=== PATIENT | male | born 1930 | race Caucasian/White ===

== ENCOUNTER → 2016-02-27 | Outpatient (CLI) | payer BC ==
[~2016-02-27] MED LIST: ACET-1256 PO; AMOX1TAB43 PO; BRIM0.15 OP; FLM4 PO; IPRA1AER2 INH; METO100T44 PO; OMEP20CA59 PO; PRS5 PO; SIMV40TA2 PO; SOLI5TAB2 PO; VTMD PO; WARF5TAB90 PO
[2016-02-27 11:11] LABS: BASO % 0.5 %; BASO ABS # 0.04 K/uL (0-0.2); COMPLETE YES; EOS % 2.7 %; HEMATOCRIT 46.9 % (42-52); IG% 0.3 %; LYMPH % 23.7 %; LYMPH ABS # 1.78 K/uL (1.2-3.4); MEAN CELL VOLUME 93.6 fL (80-100); MEAN CORPUSCULAR HEMOGLOBIN 32.7 pg (25-34); MEAN PLATELET VOLUME 11.6 fL (7.4-10.4); NEUT % 64.8 %; PLATELET COUNT 143 K/uL (130-400); RED BLOOD COUNT 5.01 M/uL (4.7-6.1)
[2016-02-27 11:27] LABS: ALT/SGPT 23 U/L (12-78); AST/SGOT 15 U/L (15-37); BLOOD UREA NITROGEN 17 mg/dl (7-18); BUN/CREATININE RATIO 19.1 (10-20); CALCIUM 8.5 mg/dl (8.5-10.1); CARBON DIOXIDE 24 mmol/L (21-32); CHLORIDE 109 mmol/L (98-107); GLUCOSE 104 mg/dl (70-99); POTASSIUM 3.7 mmol/L (3.5-5.1); SODIUM 142 mmol/L (136-145)
[2016-02-27 11:34] LABS: ALB/GLOB RATIO 1.2 (0.9-2); ALKALINE PHOSPHATASE 65 U/L (45-117); CHOLESTEROL 164 mg/dl (0-200); HDL CHOLESTEROL 55 mg/dl; LDL CHOLESTEROL CALCULATED 84 mg/dl; TRIGLYCERIDES 126 mg/dl (0-150); VERY LOW DENSITY LIPOPROT CALC 25 mg/dl
== END | disposition home or self-care (01) ==
LOC: C.LABBC 08:25
PROVIDERS: ATTEND Internal Medicine
DX: E55.9 Vitamin D deficiency, unspecified (principal); I10 Essential (primary) hypertension; E78.5 Hyperlipidemia, unspecified

== ENCOUNTER → 2016-10-24 | Outpatient (CLI) | payer BC ==
[~2016-10-24] MED LIST changes: -METO100T44 PO; +METO1TAB69 PO
[2016-10-24 11:00] LABS: HEMATOCRIT 46.1 % (42-52); MEAN CELL VOLUME 94.1 fL (80-100); MEAN CORPUSCULAR HGB CONC 34.1 g/dl (32-36); MEAN PLATELET VOLUME 11.3 fL (7.4-10.4); PLATELET COUNT 142 K/uL (130-400); WHITE BLOOD COUNT 6.04 K/uL (4.8-10.8)
[2016-10-24 11:28] LABS: ALT/SGPT 28 U/L (12-78); AST/SGOT 19 U/L (15-37); BLOOD UREA NITROGEN 11 mg/dl (7-18); BUN/CREATININE RATIO 14.5 (10-20); CALCIUM 8.4 mg/dl (8.5-10.1); CARBON DIOXIDE 28 mmol/L (21-32); CHLORIDE 109 mmol/L (98-107); CREATININE 0.78 mg/dl (0.60-1.40); GLUCOSE 105 mg/dl (70-99); POTASSIUM 3.9 mmol/L (3.5-5.1); SODIUM 141 mmol/L (136-145)
[2016-10-24 11:30] LABS: ALKALINE PHOSPHATASE 59 U/L (45-117); CHOLESTEROL 165 mg/dl (0-200); CHOLESTEROL/HDL RATIO 4.3; HDL CHOLESTEROL 38 mg/dl; LDL CHOLESTEROL CALCULATED 76 mg/dl; TRIGLYCERIDES 253 mg/dl (0-150); VERY LOW DENSITY LIPOPROT CALC 51 mg/dl
== END | disposition home or self-care (01) ==
LOC: C.LABBC 07:58
PROVIDERS: ATTEND Internal Medicine
DX: I48.2 Chronic atrial fibrillation (principal); E55.9 Vitamin D deficiency, unspecified; E83.52 Hypercalcemia

== ENCOUNTER → 2017-02-04 | Outpatient (CLI) | payer BC ==
[~2017-02-04] MED LIST changes: +METO100T44 PO; -METO1TAB69 PO
[2017-02-04 11:17] LABS: ALT/SGPT 23 U/L (12-78); AST/SGOT 15 U/L (15-37); BLOOD UREA NITROGEN 17 mg/dl (7-18); BUN/CREATININE RATIO 18.2 (10-20); CALCIUM 8.6 mg/dl (8.5-10.1); CARBON DIOXIDE 29 mmol/L (21-32); CHLORIDE 106 mmol/L (98-107); CREATININE 0.92 mg/dl (0.60-1.40); GLUCOSE 102 mg/dl (70-99); POTASSIUM 3.8 mmol/L (3.5-5.1); SODIUM 139 mmol/L (136-145)
[2017-02-04 11:20] LABS: CHOLESTEROL 150 mg/dl (0-200); CHOLESTEROL/HDL RATIO 2.8; HDL CHOLESTEROL 54 mg/dl; LDL CHOLESTEROL CALCULATED 71 mg/dl; TRIGLYCERIDES 123 mg/dl (0-150); VERY LOW DENSITY LIPOPROT CALC 25 mg/dl
== END | disposition home or self-care (01) ==
LOC: C.LABBC 08:47
PROVIDERS: ATTEND Internal Medicine
DX: E78.5 Hyperlipidemia, unspecified (principal); I48.2 Chronic atrial fibrillation

== ENCOUNTER → 2017-04-14 | Outpatient (CLI) | payer BC | LOC: C.LABBC 13:29 | PROVIDERS: ATTEND Internal Medicine | DX: E55.9 Vitamin D deficiency, unspecified (principal) ==

== ENCOUNTER 2017-05-19 09:32 | Inpatient (IN) | payer BC, OTHER ==
[~2017-05-19] VITALS: Ht 180.3 cm; Wt 95.0 kg
[~2017-05-19 09:32] MED LIST changes: -ACET-1256 PO; -FLM4 PO; -PRS5 PO; -SOLI5TAB2 PO
[2017-05-19] MEDS ORDERED: SODIUM CHLORIDE 0.9% 1000ML 500 ML IV ONE (09:49)
[2017-05-19] MEDS ORDERED: ACETAMINOPHEN 325 MG TAB PO STA (09:49)
[2017-05-19 10:10] LABS: BASO % 0.3 %; BASO ABS # 0.02 K/uL (0-0.2); EOS % 0.3 %; EOS ABS # 0.02 K/uL (0-0.5); HEMATOCRIT 46.1 % (42-52); HEMOGLOBIN 15.3 g/dL (14.0-18.0); IG# 0.01 K/uL (0.00-0.02); LYMPH % 7.1 %; LYMPH ABS # 0.41 K/uL (1.2-3.4); MEAN CELL VOLUME 94.1 fL (80-100); MEAN CORPUSCULAR HEMOGLOBIN 31.2 pg (25-34); MEAN CORPUSCULAR HGB CONC 33.2 g/dl (32-36); MONO % 12.8 %; MONO ABS # 0.74 K/uL (0.11-0.59); NEUT % 79.3 %; NEUT ABS # 4.57 K/uL (1.4-6.5); PLATELET COUNT 126 K/uL (130-400); RED CELL DISTRIBUTION WIDTH CV 13.7 % (11.5-14.5); RED CELL DISTRIBUTION WIDTH SD 47.1 fL (36.4-46.3); WHITE BLOOD COUNT 5.77 K/uL (4.8-10.8)
[2017-05-19 10:17] LABS: INR 1.7 (0.9-1.1); PTT PATIENT 30.3 SECONDS (21.0-31.0)
[2017-05-19] MEDS ORDERED: OMEP20TA PO (10:23)
[2017-05-19] MEDS ORDERED: ERGO500037 PO (10:23)
[2017-05-19 10:24] LABS: CREATININE 0.87 mg/dl (0.60-1.40)
[2017-05-19 10:25] LABS: ALBUMIN 3.8 gm/dl (3.4-5.0); CALCIUM 8.5 mg/dl (8.5-10.1); POTASSIUM 3.2 mmol/L (3.5-5.1)
[2017-05-19 10:26] LABS: TOTAL PROTEIN 6.9 gm/dl (6.4-8.2)
[2017-05-19] MEDS ORDERED: WARF5TAB7 PO ×2 (10:27)
[2017-05-19] MEDS ORDERED: METO100T44 PO (10:28)
--- NOTE | 2017-05-19 10:36 | DIAGNOSTIC IMAGING REPORT ---
CHEST ONE VIEW PORTABLE CLINICAL HISTORY: Sepsis dysphagia COMPARISON STUDY: 12/11/2015 FINDINGS: Mild cardia megaly. Clinical early parenchymal infiltrative process left base. Lungs otherwise appear clear. Suboptimal visibility left hemidiaphragm compared to the prior study. Right hemidiaphragm is smooth. IMPRESSION: Mild cardia megaly. Early interstitial infiltrate left base. The above report was generated using voice recognition software. It may contain grammatical, syntax or spelling errors. Electronically signed by: Eric Lagos M.D. 05/19/2017 10:34 AM Dictated Date/Time: 05/19/2017 10:34 AM
[2017-05-19] MEDS ORDERED: PIPERACILLIN/TAZOBACTAM 4.5 GM/100ML D5W IV STA (10:59)
[2017-05-19] MEDS ORDERED: POLYETHYLENE (MIRALAX) 17 GM PACK PO PRN (11:45)
[2017-05-19] MEDS ORDERED: ONDANSETRON INJ 2 MG/ML 2 ML VIAL IV PRN (11:45)
[2017-05-19] MEDS ORDERED: ALUMINUM/MAGNESIUM/SIMETH (MAALOX MAX) 30 ML UDC PO PRN (11:45)
[2017-05-19 11:50] LABS: INFLUENZA B ANTIGEN Neg for Influ B (NEG)
[2017-05-19] MEDS ORDERED: POTASSIUM CHLORIDE 10 MEQ TABCR PO STA (11:53)
[2017-05-19] MEDS: METOPROLOL SUCC 50MG EXT REL TAB PO STA ×2 (12:10→13:04)
--- NOTE | 2017-05-19 12:21 | History and Physical ---
History & Physical Date & Time of Service: May 19, 2017 at 11:18 Chief Complaint: Fever, Muscle Control Loss, Cough Primary Care Physician: Kenny Cuenca M.D. History of Present Illness Source: patient, family This patient is an 86-year-old male with a history of overactive bladder, BPH, chronic atrial fibrillation on Coumadin, HTN,, chronic venous insufficiency, GERD, vitamin D deficiency, and dyslipidemia, who presents with cough productive of yellow sputum 2 days with development of generalized weakness and fever to 100.5 at home. He denies chest pain or shortness of breath, denies lightheadedness or heart palpitations. He did have a headache yesterday which is now resolved. He reports some sore throat from coughing, denies nasal congestion. He denies nausea/vomiting/diarrhea/constipation, denies hematuria or dysuria. He denies myalgias. He has not had any sick contacts and he lives at home with his . He has not had any recent hospitalizations. In the ER, he was found to be febrile to 38.3C, tachycardic with rapid atrial fibrillation to the 120s, mildly tachypneic with a rate of 24 breaths per minute. His lactate was normal at 1.26. His chest x-ray showed an infiltrate at the left base. He was given IV fluids and his heart rate did improve to the low 100s. His rapid flu swab was negative. He will be admitted for left lower lobe pneumonia, community-acquired, and sepsis. Past Medical/Surgical History PMH: Overactive bladder BPH Chronic atrial fibrillation on Coumadin-follows with Dr. Napoles for cardiology HTN Chronic venous insufficiency GERD Dyslipidemia Vitamin D deficiency PSH: Right TKA Right inguinal hernia repair Parathyroidectomy Family History Noncontributory due to advanced age Social History Smoking Status: Never Smoker Smokeless Tobacco Use: No Alcohol Use: 1 drink daily, usually a martini Drug Use: none Marital Status: Housing status: lives with family (Lives with his at home) Occupational Status: retired Immunizations History of Influenza Vaccine: Yes History of Tetanus Vaccine?: Unknown History of Pneumococcal: Yes History of Hepatitis B Vaccine: Unknown Allergies Coded Allergies: Antihistamines, Diphenhydramine-typ (Verified Allergy, Unknown, "antihistamines" = rash, 05/19/17) Home Medications Scheduled Acetaminophen (Tylenol), 500 MG PO DIRECTED Ergocalciferol (Vitamin D 20710 Unit), 50,000 UNIT PO every other week Finasteride (Finasteride), 5 MG PO QPM Metoprolol Succ (Toprol Xl) (Toprol-Xl ), 150 MG PO DAILY Omeprazole (Omeprazole), 20 MG PO Q2D Simvastatin (Zocor), 40 MG PO QPM Solifenacin Succinate (Vesicare), 5 MG PO DAILY Tamsulosin HCl (Tamsulosin HCl), 0.4 MG PO QPM Warfarin Sod (Jantoven), 5 MG PO fri Warfarin Sod (Jantoven), 2.5 MG PO fri Review of Systems Constitutional: + fever, + fatigue Eyes: + discharge (Chronic watery discharge) ENT: + sore throat, No nasal symptoms, No trouble swallowing Respiratory: + cough, + sputum, No shortness of breath Cardiovascular: + edema (Chronic mild in the legs), No chest pain, No palpitations Abdomen: No pain, No nausea, No vomiting, No diarrhea, No constipation, No GI bleeding Musculoskeletal: + joint pain (Chronic arthritis) Genitourinary - Male: + urinary incontinence (Chronic), No hematuria, No dysuria Neurologic: + weakness (Generalized since last night) Psychiatric: No problem reported Endocrine: No problem reported Hematologic / Lymphatic: No problem reported Integumentary: No problem reported Allergic / Immunologic: No problem reported Physical Exam Vital Signs Date Time Temp Pulse Resp B/P (MAP) Pulse Ox O2 Delivery O2 Flow Rate FiO2 05/19/17 10:26 38.3 116 24 112/75 94 Room Air 05/19/17 10:04 97 Room Air 05/19/17 09:47 133 05/19/17 09:34 37.4 122 16 113/80 94 Room Air General Appearance: WD/WN, no apparent distress Head: normocephalic, atraumatic Eyes: normal inspection, PERRL, EOMI, sclerae normal ENT: normal ENT inspection, hearing grossly normal, TMs normal, pharynx normal (Moist mucous membranes) Neck: supple, no adenopathy, trachea midline Respiratory/Chest: no respiratory distress, no accessory muscle use, + crackles (At the left base, otherwise clear without wheezing or rhonchi) Cardiovascular: no murmur, normal peripheral pulses, + tachycardia, + irregularly irregular, + pertinent finding (Trace pitting edema to the mid tibia bilaterally) Abdomen/GI: normal bowel sounds, non tender, soft, no organomegaly, no pulsatile mass Back: normal inspection Extremities/Musculoskelatal: no calf tenderness, normal capillary refill, + swelling (Trace pitting edema as above) Neurologic/Psych: no motor/sensory deficits, alert, normal mood/affect, oriented x 3 Skin: normal color, no rash, + pertinent finding (Hot to the touch) Lymphatic: no adenopathy Diagnostics Laboratory Results Results Past 24 Hours Test 05/19/17 09:55 05/19/17 09:59 05/19/17 10:01 05/19/17 10:06 Range/Units White Blood Count 5.77 4.8-10.8 K/uL Red Blood Count 4.90 4.7-6.1 M/uL Hemoglobin 15.3 14.0-18.0 g/dL Hematocrit 46.1 42-52 % Mean Corpuscular Volume 94.1 80-100 fL Mean Corpuscular Hemoglobin 31.2 25-34 pg Mean Corpuscular Hemoglobin Concent 33.2 32-36 g/dl Platelet Count 126 130-400 K/uL Mean Platelet Volume 11.0 7.4-10.4 fL Neutrophils (%) (Auto) 79.3 % Lymphocytes (%) (Auto) 7.1 % Monocytes (%) (Auto) 12.8 % Eosinophils (%) (Auto) 0.3 % Basophils (%) (Auto) 0.3 % Neutrophils # (Auto) 4.57 1.4-6.5 K/uL Lymphocytes # (Auto) 0.41 1.2-3.4 K/uL Monocytes # (Auto) 0.74 0.11-0.59 K/uL Eosinophils # (Auto) 0.02 0-0.5 K/uL Basophils # (Auto) 0.02 0-0.2 K/uL RDW Standard Deviation 47.1 36.4-46.3 fL RDW Coefficient of Variation 13.7 11.5-14.5 % Immature Granulocyte % (Auto) 0.2 % Immature Granulocyte # (Auto) 0.01 0.00-0.02 K/uL Prothrombin Time 17.2 9.0-12.0 SECONDS Prothromb Time International Ratio 1.7 0.9-1.1 Activated Partial Thromboplast Time 30.3 21.0-31.0 SECONDS Partial Thromboplastin Ratio 1.2 Sodium Level 137 136-145 mmol/L Potassium Level 3.2 3.5-5.1 mmol/L Chloride Level 102 98-107 mmol/L Carbon Dioxide Level 27 21-32 mmol/L Anion Gap 8.0 3-11 mmol/L Blood Urea Nitrogen 14 7-18 mg/dl Creatinine 0.87 0.60-1.40 mg/dl Est Creatinine Clear Calc Drug Dose 74.4 ml/min Estimated GFR () 91.2 Estimated GFR (Non- 78.7 BUN/Creatinine Ratio 15.7 10-20 Random Glucose 107 70-99 mg/dl Calcium Level 8.5 8.5-10.1 mg/dl Total Bilirubin 1.7 0.2-1 mg/dl Aspartate Amino Transf (AST/SGOT) 20 15-37 U/L Alanine Aminotransferase (ALT/SGPT) 23 12-78 U/L Alkaline Phosphatase 58 45-117 U/L Total Protein 6.9 6.4-8.2 gm/dl Albumin 3.8 3.4-5.0 gm/dl Globulin 3.1 2.5-4.0 gm/dl Albumin/Globulin Ratio 1.2 0.9-2 Bedside Lactic Acid Venous 1.26 0.90-1.70 mmol/L Bedside Troponin I < 0.030 0-0.045 ng/ml Urine Color DK YELLOW Urine Appearance CLEAR CLEAR Urine pH 7.5 4.5-7.5 Urine Specific [place] 1.020 1.000-1.030 Urine Protein NEG NEG Urine Glucose (UA) NEG NEG Urine Ketones 1+ NEG Urine Occult Blood NEG NEG Urine Nitrite NEG NEG Urine Bilirubin NEG NEG Urine Urobilinogen POS NEG Urine Leukocyte Esterase NEG NEG Test 05/19/17 10:08 Range/Units Microbiology Results 05/19/17 Blood Culture, Received Pending 05/19/17 Blood Culture, Received Pending Diagnostic Radiology Chest x-ray images personally reviewed by me and agree with infiltrate at the left base EKG ECG with rapid atrial fibrillation with aberrancy versus PVC, rate 125, minimal criteria for inferior infarct, nonspecific T-wave changes in the anterior leads changed from previous Impression Assessment and Plan This patient is an 86-year-old male with a history of overactive bladder, BPH, chronic atrial fibrillation on Coumadin, HTN, chronic venous insufficiency, GERD , vitamin D deficiency, and dyslipidemia, who presents with cough productive of yellow sputum 2 days with development of generalized weakness and fever to 100.5 at home. He denies chest pain or shortness of breath, denies lightheadedness or heart palpitations. He did have a headache yesterday which is now resolved. He reports some sore throat from coughing, denies nasal congestion. He denies nausea/vomiting/diarrhea/constipation, denies hematuria or dysuria. He denies myalgias. He has not had any sick contacts and he lives at home with his . He has not had any recent hospitalizations. In the ER, he was found to be febrile to 38.3C, tachycardic with rapid atrial fibrillation to the 120s, mildly tachypneic with a rate of 24 breaths per minute. His lactate was normal at 1.26. His chest x-ray showed an infiltrate at the left base. He was given IV fluids and his heart rate did improve to the low 100s. His rapid flu swab was negative. He will be admitted for left lower lobe pneumonia, community-acquired, and sepsis. Sepsis/left lower lobe community-acquired pneumonia-chest x-ray with infiltrate the left base, with tachycardia and fever, as well as tachypnea. Was given 1 dose of Zosyn in the ER. Does have flulike symptoms. Rapid influenza antigen was negative. Was resuscitated with IV fluids in the ER. Lactate is negative. -Admit to telemetry -Treat with Rocephin and doxycycline for community-acquired pneumonia and in case of post influenza MRSA pneumonia (doxycycline will cover) -Check MRSA nasal swab -Check procalcitonin now -Check rapid influenza PCR swab -Follow chest x-ray to resolution -Supplemental O2 as needed to keep pulse ox above 92% -Continue IV fluids at normal saline 75 ML's per hour -Follow blood cultures Rapid atrial fibrillation/long-term anticoagulation with Coumadin-likely compensatory response to sepsis, also has not taken his metoprolol today. INR subtherapeutic at 1.7 today. -Continue IV fluids -Admitting to telemetry for cardiac monitoring -Give Toprol-XL 150 mg p.o. 1 now and then daily as per home dose -Continue Coumadin at 5 mg daily, caution with giving antibiotics-follow PT/INR daily BPH/OAB--no urinary symptoms beyond his usual incontinence. Urinalysis did not show evidence of infection. -Continue finasteride 5 mg every afternoon, Continue Flomax, continue Vesicare with formulary replacement or can bring from home HTN/chronic venous insufficiency-stable Not on diuretics -Continue Toprol-XL Hypercholesterolemia--stable -Continue simvastatin 40 mg by mouth every afternoon. GERD--stable -Continue PPI Vitamin D deficiency-last check was 1 month ago was normal at 46 -Continue p.o. vitamin D every other week as an outpatient DVT prophylaxis anticoagulation w coumadin (follow PT/INR closely on abx), SCDs Disposition-will need PT/OT consults, comes in from home Full code Advanced Directives Existing Advance Directive: No Existing Living Will: No Resuscitation Status Full code VTE Prophylaxis Will order VTE Prophylaxis: Yes Additional Copies To Bridger Napoles M.D.; Kenny Cuenca M.D.
[2017-05-19] MEDS ORDERED: POTASSIUM CHLORIDE 10 MEQ TABCR PO ONE (16:00)
[2017-05-19] MEDS: DOXYCYCLINE IV 100 MG in DEXTROSE 5% 100ML 100 ML IV SCH (17:03)
[2017-05-19] MEDS: CEFTRIAXONE SOD INJ 1 GM in DEXTROSE 5% ADD-VANTAGE 50ML 50 ML IV SCH (17:03)
[2017-05-19] MEDS: SODIUM CHLORIDE 0.9% 1000ML 1,000 ML IV SCH (17:03)
[2017-05-19] MEDS: WARFARIN SOD 5 MG TAB PO SCH (17:05)
--- NOTE | 2017-05-19 18:31 | EMERGENCY ROOM VISIT NOTE ---
History Report prepared by Niko: Jonnathan Green Under the Supervision of: Dr. Ryder Parham M.D. First contact with patient: 09:39 Chief Complaint: FEVER Stated Complaint: FEVER, MUSCLE CONTROL LOSS, COUGH History of Present Illness The patient is an 86 year old male who presents to the Emergency Room with complaints of a persistent cough that his notes he has been experiencing for the past "couple of days." The first noticed the patient's symptoms last night after she returned home from dinner. He was unable to get himself out of his chair secondary to weakness. He then had to slide down the stairs in his house on his bottom as he was too weak to get himself down the steps. Last night throughout the night he struggled to get out of bed. He did have a fever of 100.5 this morning, but has not had any chest pain. The also notes that the patient is not at his baseline mental status. He seems more confused. The patient himself denies abdominal pain, or shortness of breath. Source of History: patient, spouse/significant other Onset: Couple of days Position: chest Quality: other (Cough) Timing: other (Persistent) Associated Symptoms: + fevers, No chest pain Review of Systems See HPI for pertinent positives & negatives. A total of 10 systems reviewed and were otherwise negative. Past Medical & Surgical Medical Problems: (1) Atrial fibrillation (2) GERD (gastroesophageal reflux disease) (3) Glaucoma (4) Hypercholesteremia (5) Hypertension (6) Osteoporosis (7) Pneumonia (8) Pneumonia of right lower lobe due to infectious organism (9) Sepsis (10) Sinus tachycardia (11) Sinusitis (12) SIRS (systemic inflammatory response syndrome) Surgical Problems: (1) Status post total knee replacement, right Old medical records were reviewed. Nurse's notes were reviewed and I agree with. Family History Omitted secondary to age. Social History Smoking Status: Never Smoker Drug Use: none Marital Status: Occupation Status: retired Current/Historical Medications Scheduled Acetaminophen (Tylenol), 500 MG PO DIRECTED Ergocalciferol (Vitamin D 55877 Unit), 50,000 UNIT PO every other week Finasteride (Finasteride), 5 MG PO QPM Metoprolol Succ (Toprol Xl) (Toprol-Xl ), 150 MG PO DAILY Omeprazole (Omeprazole), 20 MG PO Q2D Simvastatin (Zocor), 40 MG PO QPM Solifenacin Succinate (Vesicare), 5 MG PO DAILY Tamsulosin HCl (Tamsulosin HCl), 0.4 MG PO QPM Warfarin Sod (Jantoven), 5 MG PO fri Warfarin Sod (Jantoven), 2.5 MG PO sun fri Allergies Coded Allergies: Antihistamines, Diphenhydramine-typ (Verified Allergy, Unknown, "antihistamines" = rash, 05/19/17) Physical Exam Vital Signs Date Time Temp Pulse Resp B/P (MAP) Pulse Ox O2 Delivery O2 Flow Rate FiO2 05/19/17 11:00 111 18 111/60 91 05/19/17 10:26 38.3 116 24 112/75 94 Room Air 05/19/17 10:04 97 Room Air 05/19/17 09:47 133 05/19/17 09:34 37.4 122 16 113/80 94 Room Air Physical Exam General: Non-ill appearing older male in no acute distress. Cheeks are mildly flushed. HEENT: Normal cephalic atraumatic. Pupils are equal round and reactive to light. Extraocular movements are intact. Oropharynx is pink with moist mucous membranes. No swelling of the mouth lips or tongue. Neck: Supple with a midline trachea. No meningeal signs or stiffness, no JVD or bruits. No Stridor. Chest: Clear to auscultation bilaterally. No wheezes or rhonchi. No increased work of breathing. Heart: Mildly tachycardic rate and irregular rhythm. Consistent with A-fib on monitor. Abdomen: Soft nontender, nondistended without rebound guarding or rigidity. Extremities: No cyanosis clubbing or edema. No calf tenderness or assymetry Spine/Back. Non tender to palpation. No CVA tenderness Skin: Good turgor without rashes. Neurologic exam: Cranial nerves two through 12 are intact. Motor and sensation are intact and symmetrical throughout. Medical Decision & Procedures ER Provider Diagnostic Interpretation: Radiology results as stated below per my review and radiologist interpretation: CHEST ONE VIEW PORTABLE CLINICAL HISTORY: Sepsis dysphagia COMPARISON STUDY: 12/11/2015 FINDINGS: Mild cardia megaly. Clinical early parenchymal infiltrative process left base. Lungs otherwise appear clear. Suboptimal visibility left hemidiaphragm compared to the prior study. Right hemidiaphragm is smooth. IMPRESSION: Mild cardia megaly. Early interstitial infiltrate left base. The above report was generated using voice recognition software. It may contain grammatical, syntax or spelling errors. Electronically signed by: Eric Lagos M.D. 05/19/2017 10:34 AM Dictated Date/Time: 05/19/2017 10:34 AM Laboratory Results 05/19/17 09:55 Red Blood Count 4.90, Mean Corpuscular Volume 94.1, Mean Corpuscular Hemoglobin 31.2, Mean Corpuscular Hemoglobin Concent 33.2, Mean Platelet Volume 11.0, Neutrophils (%) (Auto) 79.3, Lymphocytes (%) (Auto) 7.1, Monocytes (%) (Auto) 12.8, Eosinophils (%) (Auto) 0.3, Basophils (%) (Auto) 0.3, Neutrophils # (Auto ) 4.57, Lymphocytes # (Auto) 0.41, Monocytes # (Auto) 0.74, Eosinophils # (Auto ) 0.02, Basophils # (Auto) 0.02 05/19/17 09:55 Test 05/19/17 09:55 05/19/17 09:59 05/19/17 10:01 05/19/17 10:06 White Blood Count 5.77 K/uL (4.8-10.8) Red Blood Count 4.90 M/uL (4.7-6.1) Hemoglobin 15.3 g/dL (14.0-18.0) Hematocrit 46.1 % (42-52) Mean Corpuscular Volume 94.1 fL (80-100) Mean Corpuscular Hemoglobin 31.2 pg (25-34) Mean Corpuscular Hemoglobin Concent 33.2 g/dl (32-36) Platelet Count 126 K/uL (130-400) Mean Platelet Volume 11.0 fL (7.4-10.4) Neutrophils (%) (Auto) 79.3 % Lymphocytes (%) (Auto) 7.1 % Monocytes (%) (Auto) 12.8 % Eosinophils (%) (Auto) 0.3 % Basophils (%) (Auto) 0.3 % Neutrophils # (Auto) 4.57 K/uL (1.4-6.5) Lymphocytes # (Auto) 0.41 K/uL (1.2-3.4) Monocytes # (Auto) 0.74 K/uL (0.11-0.59) Eosinophils # (Auto) 0.02 K/uL (0-0.5) Basophils # (Auto) 0.02 K/uL (0-0.2) RDW Standard Deviation 47.1 fL (36.4-46.3) RDW Coefficient of Variation 13.7 % (11.5-14.5) Immature Granulocyte % (Auto) 0.2 % Immature Granulocyte # (Auto) 0.01 K/uL (0.00-0.02) Prothrombin Time 17.2 SECONDS (9.0-12.0) Prothromb Time International Ratio 1.7 (0.9-1.1) Activated Partial Thromboplast Time 30.3 SECONDS (21.0-31.0) Partial Thromboplastin Ratio 1.2 Anion Gap 8.0 mmol/L (3-11) Est Creatinine Clear Calc Drug Dose 74.4 ml/min Estimated GFR () 91.2 Estimated GFR (Non- 78.7 BUN/Creatinine Ratio 15.7 (10-20) Calcium Level 8.5 mg/dl (8.5-10.1) Total Bilirubin 1.7 mg/dl (0.2-1) Aspartate Amino Transf (AST/SGOT) 20 U/L (15-37) Alanine Aminotransferase (ALT/SGPT) 23 U/L (12-78) Alkaline Phosphatase 58 U/L (45-117) Total Protein 6.9 gm/dl (6.4-8.2) Albumin 3.8 gm/dl (3.4-5.0) Globulin 3.1 gm/dl (2.5-4.0) Albumin/Globulin Ratio 1.2 (0.9-2) Procalcitonin 0.05 ng/ml (0-0.5) Bedside Lactic Acid Venous 1.26 mmol/L (0.90-1.70) Bedside Troponin I < 0.030 ng/ml (0-0.045) Urine Color DK YELLOW Urine Appearance CLEAR (CLEAR) Urine pH 7.5 (4.5-7.5) Urine Specific [place] 1.020 (1.000-1.030) Urine Protein NEG (NEG) Urine Glucose (UA) NEG (NEG) Urine Ketones 1+ (NEG) Urine Occult Blood NEG (NEG) Urine Nitrite NEG (NEG) Urine Bilirubin NEG (NEG) Urine Urobilinogen POS (NEG) Urine Leukocyte Esterase NEG (NEG) Test 05/19/17 10:08 Influenza Type A Antigen Neg for Influ A (NEG) Influenza Type B Antigen Neg for Influ B (NEG) Laboratory studies as stated above per my review. Medications Administered Medications (Trade) Dose Ordered Sig/Lizet Route Start Time Stop Time Status Last Admin Dose Admin Sodium Chloride 500 ml @ 999 mls/hr Q31M ONCE IV 05/19/17 09:49 05/19/17 10:19 DC 05/19/17 09:49 999 MLS/HR Acetaminophen (Tylenol Tab) 650 mg NOW STAT PO 05/19/17 09:49 05/19/17 09:53 DC 05/19/17 10:14 650 MG Piperacillin Sod/ Tazobactam Sod (Zosyn Iv) 4.5 gm NOW STAT IV 05/19/17 10:59 05/19/17 11:01 DC 05/19/17 11:08 4.5 GM Sodium Chloride 1,000 ml @ 75 mls/hr [id number] IV 05/19/17 11:45 06/18/17 11:44 05/19/17 17:03 75 MLS/HR ECG Per My Interpretation Indication: altered mental status Rate (beats per minute): 125 Rhythm: atrial fibrillation (with RVR) Findings: PVC, other (Non-specific T-wave abnormality. ) Comparison ECG Date: 12/13/2015 Change: Rate is increased and T-wave changes are new. ED Course 0940: Past medical records reviewed. The patient was evaluated in room B2, and a complete history and physical examination were performed. 0949: Ordered Sodium Chloride 500 mL @ 999 mL/hr IV, Tylenol 650 mg PO. 1106: I discussed the case with Dr. Priti Robles - [facility] [place] Hospitalist. She will evaluate the patient for further treatment. Medical Decision Differential Diagnosis includes; Sepsis, pneumonia, influenza, UTI, arrhythmia, electrolyte or metabolic abnormality, and cardiac disease. This patient comes in as described above. He was placed in room B2. He has had a fever as well as a cough. He is also more confused. This occurred since last evening. On my exam, he answers questions appropriately. He does feel warm to touch. He was found to have a fever. he was given Tylenol as well as IV hydration blood cultures were obtained a full septic workup was obtained his lactic acid is not elevated. His white count is not elevated. Chest x-ray shows possible infiltrates in the base and his urinalysis could potentially also show an infection. He has no acute electrolyte or metabolic abnormalities. Influenza swab was negative. He was feeling a lot better, I do think given his age and fever and the fact that he has had some confusion and he should be observed/admitted and I have consulted Dr. Robles to see him in the ER. Medication Reconcilliation Current Medication List: was personally reviewed by me Blood Pressure Screening Patient's blood pressure: Normal blood pressure Consults Time Called: 1100 Consulting Physician: Dr. Priti Silverman [facility] [place] Hospitalist Returned Call: [phone] I discussed the case with Dr[facility] She will evaluate the patient for further treatment. Impression Primary Impression: Sepsis Additional Impression: Pneumonia Scribe Attestation The scribe's documentation has been prepared under my direction and personally reviewed by me in its entirety. I confirm that the note above accurately reflects all work, treatment, procedures, and medical decision making performed by me. Departure Information Dispostion Being Evaluated By Hospitalist Referrals No Doctor, Assigned (PCP) Patient Instructions My [facility] Problem Qualifiers
[2017-05-19 19:04] LABS: INFLUENZA A PCR Neg for Influ A (NEG); INFLUENZA B PCR Neg for Influ B (NEG)
[2017-05-19 19:46] VITALS: BP 152/83; PULSE 113; TEMP 39.4; O2SAT 93
[2017-05-19 19:54] VITALS: BP 152/83; PULSE 106; TEMP 37.2; O2SAT 93; Ht 180.3 cm; Wt 95.0 kg
[2017-05-19] MEDS: ACETAMINOPHEN 325 MG TAB PO PRN (20:00)
[2017-05-19] MEDS: SIMVASTATIN 40 MG TAB PO SCH (20:00)
[2017-05-19] MEDS: FINASTERIDE 5 MG TAB PO SCH (20:01)
[2017-05-19] MEDS: TAMSULOSIN HCL 0.4 MG CAP PO SCH (20:01)
[2017-05-19 20:09] VITALS: O2SAT 92
[2017-05-19 21:32] VITALS: TEMP 38.6
[2017-05-19] MEDS ORDERED: ACET-1256 PO (22:16)
[2017-05-19] MEDS ORDERED: FLM4 PO (22:16)
[2017-05-19] MEDS ORDERED: PRS5 PO (22:16)
[2017-05-19] MEDS ORDERED: SOLI5TAB2 PO (22:16)
[2017-05-20] VITALS (12 sets, daily range): BP systolic 115–138; BP diastolic 71–83; PULSE 82–103; TEMP 36.8–38.1; O2SAT 88–95
[2017-05-20] MEDS: DOXYCYCLINE IV 100 MG in DEXTROSE 5% 100ML 100 ML IV SCH ×2 (06:21→17:59)
[2017-05-20 07:40] LABS: HEMATOCRIT 40.2 % (42-52); HEMOGLOBIN 13.8 g/dL (14.0-18.0); MEAN CELL VOLUME 94.8 fL (80-100); MEAN CORPUSCULAR HEMOGLOBIN 32.5 pg (25-34); MEAN CORPUSCULAR HGB CONC 34.3 g/dl (32-36); RED CELL DISTRIBUTION WIDTH SD 49.3 fL (36.4-46.3); WHITE BLOOD COUNT 3.93 K/uL (4.8-10.8)
[2017-05-20 07:45] LABS: INR 1.7 (0.9-1.1)
--- NOTE | 2017-05-20 08:02 | Clinical Documentation Query ---
CLINICAL DOCUMENTATION QUERY Dr. GONZALEZ, In your clinical opinion is this patient being managed for: ( x ) possible metabolic encephalopathy/possible metabolic encephalopathy upon admission ( ) Not Agree ( ) Other explanation of clinical findings (Please Explain) ( ) Unable to determine (Please Define) ( ) Need to Discuss The medical record reflects the following clinical findings, treatment, and risk factors. Clinical Indicators: 86 yo male presenting with sepsis and pneumonia. reported pt not at baseline mental status and exhibiting more confusion in addition to cough and fever. Treatment: 500 cc NSS bolus then continuous fluids, IV zosyn, IV rocephin, IV doxycycline, tele monitoring, O2 support Risk Factors: sepsis, pneumonia Please clarify and document your clinical opinion in the progress notes and discharge summary. Terms such as "probable", "suspected", "likely", "questionable", "possible", or "still to be ruled out" are acceptable. IF IN AGREEMENT, YOU MUST DOCUMENT ABOVE DIAGNOSTIC STATEMENT IN DAILY PROGRESS NOTES AND DISCHARGE SUMMARY. This document is not part of the patient's record. Thank You, Magali Ham, RN [phone]
[2017-05-20 08:09] LABS: ALBUMIN 2.9 gm/dl (3.4-5.0); CALCIUM 7.7 mg/dl (8.5-10.1); CREATININE 0.59 mg/dl (0.60-1.40); POTASSIUM 3.4 mmol/L (3.5-5.1)
[2017-05-20 08:15] LABS: MEAN PLATELET VOLUME 11.2 fL (7.4-10.4); PLATELET COUNT 96 K/uL (130-400); TOTAL PROTEIN 5.9 gm/dl (6.4-8.2)
[2017-05-20 08:16] LABS: BASO % 0.5 %; BASO ABS # 0.02 K/uL (0-0.2); EOS % 0.8 %; EOS ABS # 0.03 K/uL (0-0.5); IG# 0.01 K/uL (0.00-0.02); LYMPH % 20.9 %; LYMPH ABS # 0.82 K/uL (1.2-3.4); MONO ABS # 0.63 K/uL (0.11-0.59); NEUT % 61.5 %; NEUT ABS # 2.42 K/uL (1.4-6.5)
[2017-05-20] MEDS: SODIUM CHLORIDE 0.9% 1000ML 1,000 ML IV SCH ×2 (08:30→14:32)
[2017-05-20] MEDS: METOPROLOL SUCC 50MG EXT REL TAB PO SCH (08:39)
[2017-05-20] MEDS: PANTOprazole SOD 40 MG TAB PO SCH (08:39)
--- NOTE | 2017-05-20 14:41 | Progress Note ---
Subjective Date of Service: May 20, 2017. Subjective Pt evaluation today including: conversation w/ patient, conversation w/ family , physical exam, chart review, lab review, review of studies, review of inpatient medication list Doing okay, report a mild cough, nonproductive, has been up and walk, no spiking fever, Problem List Medical Problems: (1) Confusion Status: Acute (2) Confusion Status: Acute (3) Fever Status: Acute (4) Rapid atrial fibrillation Status: Acute (5) SIRS (systemic inflammatory response syndrome) Status: Acute (6) Weakness Status: Acute Review of Systems Constitutional: No fever, No chills, No sweats, No weight loss, No weakness, No fatigue, No problem reported Eyes: No worsening of vision, No eye pain, No redness, No discharge, No diplopia ENT: No hearing loss, No unusual epistaxis, No nasal symptoms, No sore throat, No tinnitus, No dental problems, No trouble swallowing Respiratory: + cough, No sputum, No wheezing, No shortness of breath, No dyspnea on exertion, No dyspnea at rest, No hemoptysis Cardiac: No chest pain, No orthopnea, No PND, No edema, No claudication, No palpitations Abdomen: No pain, No nausea, No vomiting, No diarrhea, No constipation Musculoskeletal: No joint pain, No muscle pain, No swelling, No calf pain Male : No dysuria, No urinary frequency, No incontinence, No nocturia more than once/night, No slowing stream, No hematuria Neurologic: No memory loss, No paralysis, No weakness, No numbness/tingling, No vertigo, No balance problems Psychiatric: No depression symptoms, No anhedonism, No anxiety, No insomnia, No substance abuse Heme: No abnormal bleeding/bruising, No clotting problems, No swollen lymph nodes, No night sweats Endo: No fatigue, No excessive thirst, No excessive urination Skin: No rash, No itch, No new/changing skin lesions, No color change, No bleeding Objective Vital Signs Date Time Temp Pulse Resp B/P (MAP) Pulse Ox O2 Delivery O2 Flow Rate FiO2 05/20/17 12:00 92 Room Air 2.0 05/20/17 11:21 37.7 89 16 116/76 (89) 92 Room Air 05/20/17 08:00 92 Room Air 2.0 05/20/17 07:26 37.1 82 16 137/81 (99) 92 Room Air 05/20/17 04:00 92 Nasal Cannula 2.0 05/20/17 04:00 37.0 103 20 122/79 (93) 95 Nasal Cannula 2.0 05/20/17 00:05 95 Nasal Cannula 2.0 05/20/17 00:00 38.1 100 20 134/83 (100) 88 Room Air 05/20/17 00:00 92 Nasal Cannula 2.0 05/19/17 21:32 38.6 05/19/17 20:09 92 Room Air 05/19/17 19:54 37.2 106 20 152/83 93 Room Air 05/19/17 19:46 39.4 113 20 152/83 (106) 93 Room Air 05/19/17 14:34 37.1 98 22 115/73 94 Physical Exam General Appearance: WD/WN, no apparent distress Eyes: normal inspection, PERRL, EOMI, sclerae normal ENT: normal ENT inspection, hearing grossly normal, pharynx normal Neck: supple, no adenopathy, thyroid normal, no JVD, no carotid bruits, trachea midline Respiratory/Chest: chest non-tender, normal breath sounds, no respiratory distress, no accessory muscle use, + decreased breath sounds Cardiovascular: regular rate, rhythm, no gallop, no JVD, no murmur Abdomen: normal bowel sounds, non tender, soft, no organomegaly, no pulsatile mass Extremities: normal range of motion, non-tender, normal inspection, no pedal edema, no calf tenderness, normal capillary refill, pelvis stable, + swelling (1 + edema) 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, no motor/sensory deficits, alert, normal mood/affect, oriented x 3 Skin: normal color, warm/dry, no rash Lymphatic: no adenopathy Laboratory Results Last 24 Hours Test 05/19/17 15:59 05/19/17 16:54 05/19/17 22:05 05/20/17 07:09 Troponin I 0.023 ng/ml 0.039 ng/ml Influenza Type A (RT-PCR) Neg for Influ A Influenza Type B (RT-PCR) Neg for Influ B White Blood Count 3.93 K/uL Red Blood Count 4.24 M/uL Hemoglobin 13.8 g/dL Hematocrit 40.2 % Mean Corpuscular Volume 94.8 fL Mean Corpuscular Hemoglobin 32.5 pg Mean Corpuscular Hemoglobin Concent 34.3 g/dl Platelet Count 96 K/uL Mean Platelet Volume 11.2 fL Neutrophils (%) (Auto) 61.5 % Lymphocytes (%) (Auto) 20.9 % Monocytes (%) (Auto) 16.0 % Eosinophils (%) (Auto) 0.8 % Basophils (%) (Auto) 0.5 % Neutrophils # (Auto) 2.42 K/uL Lymphocytes # (Auto) 0.82 K/uL Monocytes # (Auto) 0.63 K/uL Eosinophils # (Auto) 0.03 K/uL Basophils # (Auto) 0.02 K/uL RDW Standard Deviation 49.3 fL RDW Coefficient of Variation 14.0 % Immature Granulocyte % (Auto) 0.3 % Immature Granulocyte # (Auto) 0.01 K/uL Platelet Estimate DECREASED Red Blood Cell Morphology Unremarkable Prothrombin Time 18.0 SECONDS Prothromb Time International Ratio 1.7 Sodium Level 138 mmol/L Potassium Level 3.4 mmol/L Chloride Level 107 mmol/L Carbon Dioxide Level 24 mmol/L Anion Gap 7.0 mmol/L Blood Urea Nitrogen 11 mg/dl Creatinine 0.59 mg/dl Est Creatinine Clear Calc Drug Dose 109.7 ml/min Estimated GFR () 107.0 Estimated GFR (Non- 92.3 BUN/Creatinine Ratio 17.9 Random Glucose 83 mg/dl Calcium Level 7.7 mg/dl Magnesium Level 1.9 mg/dl Total Bilirubin 0.7 mg/dl Direct Bilirubin 0.2 mg/dl Aspartate Amino Transf (AST/SGOT) 27 U/L Alanine Aminotransferase (ALT/SGPT) 23 U/L Alkaline Phosphatase 46 U/L Total Protein 5.9 gm/dl Albumin 2.9 gm/dl Assessment and Plan 86-year-old male admitted on May 19, 2017 because of possible sepsis and community-acquired pneumonia Sepsis/left lower lobe community-acquired pneumonia chest x-ray with infiltrate the left base Rapid influenza antigen was negative Stable improving, Rapid atrial fibrillation/long-term anticoagulation with Coumadin: Currently rate controlled, possible metabolic encephalopathy/possible metabolic encephalopathy upon admission, totally resolved Mild decreased platelet level, will watch, Continue telemetry, Rocephin and doxycycline, follow-up MRSA nasal swab, continue supplemental O2 as needed to keep pulse ox above 92%, follow blood cultures Continue Coumadin, follow-up INR subtherapeutic at 1.7 today Past medical history of overactive bladder, BPH, chronic atrial fibrillation on Coumadin, HTN, chronic venous insufficiency, GERD, vitamin D deficiency, and dyslipidemia: Continue other home medication DVT prophylaxis anticoagulation w coumadin PT/OT consults, comes in from home Full code Continued [facility] stay due to: multiple IV medications needed Discharge planning: home
[2017-05-20] MEDS ORDERED: POTASSIUM CHLORIDE 10 MEQ TABCR PO ONE (14:45)
[2017-05-20] MEDS: CEFTRIAXONE SOD INJ 1 GM in DEXTROSE 5% ADD-VANTAGE 50ML 50 ML IV SCH (17:52)
[2017-05-20] MEDS: WARFARIN SOD 5 MG TAB PO SCH (17:53)
[2017-05-20] MEDS: FINASTERIDE 5 MG TAB PO SCH (20:25)
[2017-05-20] MEDS: ACETAMINOPHEN 325 MG TAB PO PRN (20:25)
[2017-05-20] MEDS: TAMSULOSIN HCL 0.4 MG CAP PO SCH (20:25)
[2017-05-20] MEDS: SIMVASTATIN 40 MG TAB PO SCH (20:26)
[2017-05-21] VITALS (7 sets, daily range): BP systolic 107–144; BP diastolic 70–85; PULSE 81–97; TEMP 36.4–37.1; O2SAT 92–99
[2017-05-21] MEDS: DOXYCYCLINE IV 100 MG in DEXTROSE 5% 100ML 100 ML IV SCH (06:07)
[2017-05-21] MEDS: METOPROLOL SUCC 50MG EXT REL TAB PO SCH (08:03)
--- NOTE | 2017-05-21 15:45 | Progress Note ---
Subjective Date of Service: May 21, 2017. Subjective Pt evaluation today including: conversation w/ patient, conversation w/ family , physical exam, chart review, lab review, review of studies, review of inpatient medication list Still cough, mild wheezing, denies chest pain, denies fever and chills, generally feeling better Problem List Medical Problems: (1) Confusion Status: Acute (2) Confusion Status: Acute (3) Fever Status: Acute (4) Rapid atrial fibrillation Status: Acute (5) SIRS (systemic inflammatory response syndrome) Status: Acute (6) Weakness Status: Acute Review of Systems Constitutional: No fever, No chills, No sweats, No weight loss, No weakness, No fatigue, No problem reported Eyes: No worsening of vision, No eye pain, No redness, No discharge, No diplopia ENT: No hearing loss, No unusual epistaxis, No nasal symptoms, No sore throat, No tinnitus, No dental problems, No trouble swallowing Respiratory: + cough, + wheezing, No sputum, No shortness of breath, No dyspnea on exertion, No dyspnea at rest, No hemoptysis Cardiac: No chest pain, No orthopnea, No PND, No edema, No claudication, No palpitations Abdomen: No pain, No nausea, No vomiting, No diarrhea, No constipation Musculoskeletal: No joint pain, No muscle pain, No swelling, No calf pain Male : No dysuria, No urinary frequency, No incontinence, No nocturia more than once/night, No slowing stream, No hematuria Neurologic: No memory loss, No paralysis, No weakness, No numbness/tingling, No vertigo, No balance problems Psychiatric: No depression symptoms, No anhedonism, No anxiety, No insomnia, No substance abuse Heme: No abnormal bleeding/bruising, No clotting problems, No swollen lymph nodes, No night sweats Endo: No fatigue, No excessive thirst, No excessive urination Skin: No rash, No itch, No new/changing skin lesions, No color change, No bleeding Objective Vital Signs Date Time Temp Pulse Resp B/P (MAP) Pulse Ox O2 Delivery O2 Flow Rate FiO2 05/21/17 15:18 36.8 87 18 117/80 (92) 93 05/21/17 12:10 Room Air 05/21/17 11:29 36.7 81 18 117/72 (87) 97 Room Air 05/21/17 08:10 Room Air 05/21/17 07:07 36.4 90 18 144/85 (104) 94 Room Air 05/21/17 04:15 36.5 97 16 117/75 (89) 99 Room Air 05/21/17 04:05 Room Air 05/21/17 00:05 Room Air 05/20/17 23:46 36.8 103 16 115/71 (86) 91 Room Air 05/20/17 20:29 37.7 93 18 138/83 (101) 92 Room Air 05/20/17 20:06 92 Room Air 05/20/17 16:25 37.1 95 20 121/78 (92) 93 Room Air 05/20/17 16:03 92 Room Air Physical Exam General Appearance: WD/WN, no apparent distress Eyes: normal inspection, PERRL, EOMI, sclerae normal ENT: normal ENT inspection, hearing grossly normal, pharynx normal Neck: supple, no adenopathy, thyroid normal, no JVD, no carotid bruits, trachea midline Respiratory/Chest: lungs clear, normal breath sounds, no respiratory distress, no accessory muscle use, + decreased breath sounds, + rales, + wheezing (Right middle and lower lung) Cardiovascular: regular rate, rhythm, no edema, no gallop, no JVD, no murmur Abdomen: normal bowel sounds, non tender, soft, no organomegaly, no pulsatile mass Extremities: normal range of motion, non-tender, normal inspection, no pedal edema, no calf tenderness, normal capillary refill, pelvis stable 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, no motor/sensory deficits, alert, normal mood/affect, oriented x 3 Skin: normal color, warm/dry, no rash Lymphatic: no adenopathy Assessment and Plan 86-year-old male admitted on May 19, 2017 because of possible sepsis and community-acquired pneumonia Sepsis/left lower lobe community-acquired pneumonia: chest x-ray with infiltrate the left base Rapid influenza antigen was negative Stable improving, change to oral antibiotics, follow blood culture, Rapid atrial fibrillation/long-term anticoagulation with Coumadin: Currently rate controlled, possible metabolic encephalopathy/possible metabolic encephalopathy upon admission, totally resolved Thrombocytopenia with mild decreased platelet level, will watch, Continue telemetry, Rocephin and doxycycline, follow-up MRSA nasal swab, continue supplemental O2 as needed to keep pulse ox above 92%, follow blood cultures Continue Coumadin, follow-up INR subtherapeutic at 1.7 today Past medical history of overactive bladder, BPH, chronic atrial fibrillation on Coumadin, HTN, chronic venous insufficiency, GERD, vitamin D deficiency, and dyslipidemia: Continue other home medication DVT prophylaxis anticoagulation w coumadin PT/OT consults, comes in from home, possible discharge tomorrow Full code Continued [facility] stay due to: multiple IV medications needed Discharge planning: home
[2017-05-21] MEDS: AMOXICILLIN/CLAVULANATE TAB 875 MG TAB PO SCH (16:59)
[2017-05-21] MEDS: WARFARIN SOD 5 MG TAB PO SCH (17:00)
[2017-05-21] MEDS: TAMSULOSIN HCL 0.4 MG CAP PO SCH (21:00)
[2017-05-21] MEDS: SIMVASTATIN 40 MG TAB PO SCH (21:00)
[2017-05-21] MEDS: DOXYCYCLINE HYCLATE 100 MG CAP PO SCH (21:00)
[2017-05-21] MEDS: FINASTERIDE 5 MG TAB PO SCH (21:00)
[2017-05-22 04:19] VITALS: BP 132/87; PULSE 92; TEMP 37.4; O2SAT 97
[2017-05-22 06:04] LABS: HEMATOCRIT 43.3 % (42-52); HEMOGLOBIN 15.2 g/dL (14.0-18.0); MEAN CELL VOLUME 93.3 fL (80-100); MEAN CORPUSCULAR HEMOGLOBIN 32.8 pg (25-34); MEAN CORPUSCULAR HGB CONC 35.1 g/dl (32-36); RED CELL DISTRIBUTION WIDTH CV 13.7 % (11.5-14.5); RED CELL DISTRIBUTION WIDTH SD 46.7 fL (36.4-46.3); WHITE BLOOD COUNT 3.09 K/uL (4.8-10.8)
[2017-05-22 06:06] LABS: INR 1.8 (0.9-1.1)
[2017-05-22 06:09] LABS: MEAN PLATELET VOLUME 11.2 fL (7.4-10.4); PLATELET COUNT 97 K/uL (130-400)
[2017-05-22 06:39] LABS: CALCIUM 8.2 mg/dl (8.5-10.1); CREATININE 0.62 mg/dl (0.60-1.40); PHOSPHORUS 3.3 mg/dl (2.5-4.9); POTASSIUM 3.6 mmol/L (3.5-5.1)
[2017-05-22 06:54] LABS: BASO % 0.6 %; BASO ABS # 0.02 K/uL (0-0.2); EOS % 2.3 %; EOS ABS # 0.07 K/uL (0-0.5); LYMPH % 31.7 %; LYMPH ABS # 0.98 K/uL (1.2-3.4); MONO % 12.9 %; NEUT % 52.5 %; NEUT ABS # 1.62 K/uL (1.4-6.5)
[2017-05-22 07:27] VITALS: BP 122/76; PULSE 90; TEMP 37; O2SAT 94
[2017-05-22] MEDS: DOXYCYCLINE HYCLATE 100 MG CAP PO SCH (08:04)
[2017-05-22] MEDS: AMOXICILLIN/CLAVULANATE TAB 875 MG TAB PO SCH (08:04)
[2017-05-22] MEDS: METOPROLOL SUCC 50MG EXT REL TAB PO SCH (08:04)
[2017-05-22] MEDS: PANTOprazole SOD 40 MG TAB PO SCH (08:04)
[2017-05-22] MEDS ORDERED: RBTUDL5 PO (11:18)
[2017-05-22] MEDS ORDERED: IPRA1AER2 INH (11:18)
[2017-05-22] MEDS ORDERED: AMOX1TAB43 PO (11:18)
[2017-05-22] MEDS ORDERED: DXY100 PO (11:18)
[2017-05-22 11:19] VITALS: BP 135/78; PULSE 99; TEMP 37.3; O2SAT 93
--- NOTE | 2017-05-22 11:22 | Discharge Instructions ---
Discharge Instructions Date of Service May 22, 2017. Admission Reason for Admission: Pneumonia, Sepsis Discharge Discharge Diagnosis / Problem: PNA Discharge Goals Goal(s): Decrease discomfort, Improve function, Increase independence, Improve disease control, Improve nutritional status, Learn about illness, Diagnostic testing, Therapeutic intervention, Prevent Disease Progression, Specific goals Activity Recommendations Activity Limitations: resume your previous activity . Instructions / Follow-Up Instructions / Follow-Up you have left lower lobe community-acquired pneumonia you have Rapid atrial fibrillation/long-term anticoagulation with Coumadin: Currently rate controlled, you INR subtherapeutic at 1.7, you need to continue home dose of Coumadin, check PT/INR in Coumadin clinic on Friday, and adjusted accordingly - you need to follow up with your primary care physician in 1 week, - take medication as instructed, never overdose or any misuse, or take with alcohol, because misuse of medicine may cause organ damage or , call your primary care physician if have questions of medicaitons. - call your primary care physician OR go to local emergency room if has any fever/chill, chest pain, shortness of breathing, nausea/vomiting/abdominal pain , facial droop/slurry speech/local weakness, or if has any questions. - fall precaution - diet as instructed Current Hospital Diet Patient's current hospital diet: AHA Diet (Heart Healthy) Discharge Diet Recommended Diet: AHA Diet (Heart Healthy) Pending Studies Studies pending at discharge: no Laboratory Results Meds Administered (Past 24Hrs) Medications (Trade) Dose Ordered Sig/Lizet Route Start Time Stop Time Status Last Admin Dose Admin Potassium Chloride (Klor-Con M10) 20 meq NOW ONCE PO 05/20/17 14:45 05/20/17 14:48 DC 05/20/17 17:52 20 MEQ Amoxicillin/ Clavulanate Potassium (Augmentin Tab) 875 mg BIDM PO 05/21/17 17:00 05/28/17 16:59 05/22/17 08:04 875 MG Doxycycline Hyclate (Vibramycin Cap) 100 mg BID PO 05/21/17 21:00 05/26/17 09:01 05/22/17 08:04 100 MG Medical Emergencies . Who to Call and When: Medical Emergencies: If at any time you feel your situation is an emergency, please call 911 immediately. . Non-Emergent Contact Non-Emergency issues call your: Primary Care Provider . . "Provider Documentation" section prepared by Mazin Wild. .
[2017-05-22 11:34] VITALS: BP 135/78; PULSE 99; TEMP 37.3; O2SAT 93
--- NOTE | 2017-05-22 15:11 | Discharge Summary ---
Discharge Summary Date of Service May 22, 2017. Discharge Summary Admission Date: May 19, 2017 at 11:49 Discharge Date: May 22, 2017 Discharge Disposition: Home Principal Diagnosis: left lower lobe community-acquired pneumonia Problems/Secondary Diagnoses: Rapid atrial fibrillation INR subtherapeutic Immunizations: Have You Had Influenza Vaccine: Yes History of Tetanus Vaccine?: Unknown History of Pneumococcal: Yes History of Hepatitis B Vaccine: Unknown Procedures: No Consultations: No Medication Reconciliation New Medications: Guaifenesin (Robitussin) 100 Mg/5 Ml Blaire 10 ML PO QID for 7 Days Ipratropium-Albuterol (Combivent Respimat) 1 Aer Aer 1 PUFFS INH QID for 7 Days, INH Amoxicillin & Pot Clavulanate (Amoxicillin/Clavulanate P) 1 Tab Tab 875 MG PO BIDM for 5 Days, #10 TAB Doxycycline Hyclate (Doxycycline Hyclate) 100 Mg Cap 100 MG PO BID for 5 Days, #10 CAP Continued Medications: Acetaminophen (Tylenol) 500 Mg Tab 500 MG PO DIRECTED, TAB Ergocalciferol (Vitamin D 50677 Unit) 50,000 Unit Cap 83931 UNIT PO every other week, CAP Finasteride (Finasteride) 5 Mg Tab 5 MG PO QPM, #90 Metoprolol Succ (Toprol Xl) (Toprol-Xl ) 100 Mg Tabcr 150 MG PO DAILY, TAB Omeprazole (Omeprazole) 20 Mg Tab 20 MG PO Q2D for 90 Days, TAB 3 Refills Simvastatin (Zocor) 40 Mg Tab 40 MG PO QPM, TAB Solifenacin Succinate (Vesicare) 5 Mg Tab 5 MG PO DAILY, #90 Tamsulosin HCl (Tamsulosin HCl) 0.4 Mg Cap 0.4 MG PO QPM, #90 Warfarin Sod (Jantoven) 5 Mg Tab 5 MG PO fri, TAB Warfarin Sod (Jantoven) 5 Mg Tab 2.5 MG PO fri, TAB Discharge Exam Doing well, eating good, up and walk, mild cough, which is better Review of Systems: Constitutional: No fever, No chills, No sweats, No weight loss, No weakness , No fatigue, No problem reported Eyes: No worsening of vision, No eye pain, No redness, No discharge, No diplopia, No problem reported ENT: No hearing loss, No unusual epistaxis, No nasal symptoms, No sore throat, No tinnitus, No dental problems, No trouble swallowing, No problem reported Respiratory: + cough Cardiovascular: No chest pain, No orthopnea, No PND, No edema, No claudication, No palpitations, No problem reported Abdomen: No pain, No nausea, No vomiting, No diarrhea, No constipation, No GI bleeding, No problem reported Musculoskeletal: No joint pain, No muscle pain, No swelling, No calf pain, No problem reported Genitourinary - Male: No hematuria, No dysuria, No urinary frequency, No urinary urgency, No urinary hesitancy, No urinary retention, No urinary incontinence, No penile discharge, No lesions, No impotence, No problem reported Neurologic: No memory loss, No paralysis, No weakness, No numbness/tingling , No vertigo, No balance problems, No problem reported Psychiatric: No depression symptoms, No anhedonism, No anxiety, No insomnia , No substance abuse, No problem reported Endocrine: No fatigue, No excessive thirst, No excessive urination, No problem reported Hematologic / Lymphatic: No abnormal bleeding/bruising, No clotting problems , No swollen lymph nodes, No night sweats, No problem reported Integumentary: No rash, No itch, No new/changing skin lesions, No color change, No bleeding, No problem reported Physical Exam: General Appearance: WD/WN, no apparent distress Eyes: normal inspection, PERRL ENT: normal ENT inspection, hearing grossly normal Neck: supple, no adenopathy Respiratory/Chest: chest non-tender, no respiratory distress, no accessory muscle use, + decreased breath sounds Cardiovascular: regular rate, rhythm, no edema Abdomen / GI: normal bowel sounds, non tender, soft, no organomegaly, no pulsatile mass Extremities: normal inspection, no calf tenderness, normal capillary refill 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, no motor/sensory deficits , alert, normal mood/affect, normal reflexes Skin: normal color, warm/dry, no rash Hospital Course 86-year-old male admitted on May 19, 2017 because of possible sepsis and community-acquired pneumonia Sepsis upon admission, left lower lobe community-acquired pneumonia: Blood culture negative so far chest x-ray with infiltrate the left base Rapid influenza antigen was negative Stable improving, change to oral antibiotics, follow blood culture, is negative so for Rapid atrial fibrillation/long-term anticoagulation with Coumadin: Currently rate controlled, possible metabolic encephalopathy/possible metabolic encephalopathy upon admission, totally resolved Thrombocytopenia with mild decreased platelet level, is better today continue watch Continue telemetry, Rocephin and doxycycline, follow-up MRSA nasal swab, continue supplemental O2 as needed to keep pulse ox above 92%, follow blood cultures Which was changed to Augmentin and doxycycline will continue antibiotic for total knee 7 days Continue Coumadin, follow-up INR subtherapeutic at 1.7 today Past medical history of overactive bladder, BPH, chronic atrial fibrillation on Coumadin, HTN, chronic venous insufficiency, GERD, vitamin D deficiency, and dyslipidemia: Continue other home medication DVT prophylaxis anticoagulation w coumadin PT/OT consults, comes in from home, Full code Instructions / Follow-Up you have left lower lobe community-acquired pneumonia you have Rapid atrial fibrillation/long-term anticoagulation with Coumadin: Currently rate controlled, you INR subtherapeutic at 1.7, you need to continue home dose of Coumadin, check PT/INR in Coumadin clinic on Friday, and adjusted accordingly - you need to follow up with your primary care physician in 1 week, - take medication as instructed, never overdose or any misuse, or take with alcohol, because misuse of medicine may cause organ damage or , call your primary care physician if have questions of medicaitons. - call your primary care physician OR go to local emergency room if has any fever/chill, chest pain, shortness of breathing, nausea/vomiting/abdominal pain , facial droop/slurry speech/local weakness, or if has any questions. - fall precaution - diet as instructed Total Time Spent: Greater than 30 minutes This includes examination of the patient, discharge planning, medication reconciliation, and communication with other providers. Discharge Instructions Please refer to the electronic Patient Visit Report (Discharge Instructions) for additional information.
== END 2017-05-22 12:44 | disposition home or self-care (01) | DRG 871 ==
LOC: C.EDB 09:33 → C.MED 11:49 → ENRESERV 13:42
PROVIDERS: ADMIT Family Medicine; ATTEND Family Medicine
DX: A41.9 Sepsis, unspecified organism (principal); J18.9 Pneumonia, unspecified organism; G93.41 Metabolic encephalopathy; R79.1 Abnormal coagulation profile; D69.6 Thrombocytopenia, unspecified; I48.2 Chronic atrial fibrillation; K21.9 Gastro-esophageal reflux disease without esophagitis; E78.5 Hyperlipidemia, unspecified; I11.9 Hypertensive heart disease without heart failure; N32.81 Overactive bladder; N40.0 Benign prostatic hyperplasia without lower urinary tract symptoms; E55.9 Vitamin D deficiency, unspecified; I87.2 Venous insufficiency (chronic) (peripheral); Z51.81 Encounter for therapeutic drug level monitoring; Z79.899 Other long term (current) drug therapy; Z79.01 Long term (current) use of anticoagulants; Z88.8 Allergy status to other drugs, medicaments and biological substances